=== PATIENT | female | born 1990 | race Caucasian/White ===

== ENCOUNTER 2021-05-14 01:47 | Emergency (ER) | payer BC ==
[2021-05-14] MEDS ORDERED: Metoclopramide 10 MG/2 ML SDV IVPUSH ONE (02:00)
[2021-05-14] MEDS ORDERED: Sodium Chloride 0.9% 2.5 ML Syringe FLUSH PRN (02:00)
[2021-05-14] MEDS ORDERED: Ketorolac 30 MG/ML SDV IVPUSH ONE (02:00)
[2021-05-14] MEDS ORDERED: diphenhydrAMINE 50 MG/ML SDV IVPUSH ONE (02:00)
[2021-05-14] MEDS ORDERED: Sodium Chloride 0.9% 1,000 ML IV ONE (02:00)
[2021-05-14] MEDS ORDERED: Sodium Chloride 0.9% 10 ML Syringe FLUSH PRN (02:00)
== END 2021-05-14 03:15 | disposition home or self-care (01) ==
LOC: MW.ED 01:47
DX: R51.9 Headache, unspecified (principal)
CPT/HCPCS: 96374; 96375; 99283; J1200; J1885; J2765; J7030; J3490

== ENCOUNTER 2022-06-11 13:17 | Emergency (ER) | payer BC ==
[2022-06-11] MEDS ORDERED: Sodium Chloride 0.9% 2.5 ML Syringe FLUSH PRN (13:31)
[2022-06-11] MEDS ORDERED: Sodium Chloride 0.9% 10 ML Syringe FLUSH PRN (13:31)
[2022-06-11] MEDS ORDERED: Sodium Chloride 0.9% 1,000 ML IV ONE (13:31)
[2022-06-11] MEDS ORDERED: Ondansetron 4 MG/2 ML SDV IVPUSH ONE (13:32)
[2022-06-11] MEDS ORDERED: diphenhydrAMINE 50 MG/ML SDV IVPUSH ONE (13:32)
[2022-06-11] MEDS ORDERED: Ketorolac 30 MG/ML SDV IVPUSH ONE (13:32)
== END 2022-06-11 15:17 | disposition home or self-care (01) ==
LOC: MW.ED 13:17
DX: G43.909 Migraine, unspecified, not intractable, without status migrainosus (principal)
CPT/HCPCS: 96361; 96374; 96375; 99283; J1200; J1885; J2405; J3490; J7030; 99284